=== PATIENT | male | born 1990 | race Caucasian/White ===

== ENCOUNTER 2016-05-02 22:52 | Emergency (ER) | payer BC ==
[2016-05-02 22:59] VITALS: BP 131/66; RESP 16; TEMP 98.6
--- NOTE | 2016-05-02 23:35 | ED ---
Wound/Laceration HPI - General Chief Complaint: Wound/Laceration Stated Complaint: Eye Injury Source: patient Mode of arrival: ambulatory Limitations: no limitations - History of Present Illness Initial Comments: Patient is a 25-year-old male who presents for evaluation after sustaining a laceration to the right eyebrow while playing hockey this evening. Past medical history as below. Injury occurred 1 hour prior to arrival. He has a 1.5 cm laceration within the right eyebrow. Bleeding is controlled. He stated that he is wearing a helmet without EKG on it. Opponent was skating towards him at full speed and when the opponent lifted his head the right eye got hit by the cage of the opponent's helmet. There is no loss of consciousness. No blurry vision or double vision. No pain to the eyes. His last tetanus shot was 4 years ago. He denies fever, chills, URI symptoms, shortness of breath, cough, chest pain, nausea, vomiting, diarrhea, pain or burning with urination. - Related Data Allergies Allergy/AdvReac Type Severity Reaction Status Date / Time No Known Allergies Allergy Verified 05/02/16 22:59 Review of Systems ROS Statement: Those systems with pertinent positive or pertinent negative responses have been documented in the HPI. ROS Other: All systems not noted in ROS Statement are negative. Past Medical History Past Medical History: No Reported History History of Any Multi-Drug Resistant Organisms: MRSA Date of last positivie culture/infection: 2007 MDRO Source:: right knee Past Surgical History: Appendectomy, Orthopedic Surgery Additional Past Surgical History / Comment(s): jaw, nasal surgery Past Anesthesia/Blood Transfusion Reactions: No Reported Reaction Past Psychological History: No Psychological Hx Reported Smoking Status: Never smoker Past Alcohol Use History: Occasional Past Drug Use History: None Reported General Exam Limitations: no limitations General appearance: alert, in no apparent distress, other (Resting comfortably in stretcher) Head exam: Present: normocephalic, normal inspection, other (Minimal soft tissue swelling above the right orbit) Eye exam: Present: normal appearance, PERRL, EOMI, other (Extraocular muscles intact b/l). Absent: scleral icterus, conjunctival injection, periorbital swelling ENT exam: Present: normal exam, mucous membranes moist Neck exam: Present: normal inspection. Absent: tenderness, meningismus, lymphadenopathy Respiratory exam: Present: normal lung sounds bilaterally. Absent: respiratory distress, wheezes, rales, rhonchi, stridor Cardiovascular Exam: Present: regular rate, normal rhythm, normal heart sounds. Absent: systolic murmur, diastolic murmur, rubs, gallop, clicks GI/Abdominal exam: Present: soft, normal bowel sounds. Absent: distended, tenderness, guarding, rebound, rigid Extremities exam: Present: normal inspection, full ROM, normal capillary refill. Absent: tenderness, pedal edema, joint swelling, calf tenderness Back exam: Present: normal inspection Neurological exam: Present: alert, oriented X3, CN II-XII intact Psychiatric exam: Present: normal affect, normal mood Skin exam: Present: warm, dry, intact, normal color, other (1.5 cm laceration within the right eyebrow.). Absent: rash Course Vital Signs 05/02/16 22:53 Temperature 98.6 F Pulse Rate 107 H Respiratory 16 Rate Blood Pressure 131/66 O2 Sat by Pulse 97 Oximetry Procedures - Laceration Laceration #1 Consent Obtained: verbal consent Time Out Performed: Yes Indication: laceration Site: face Size (cm): 1 (1.5 cm laceration) Description: linear Depth: simple, single layer Anesthesia Technique: local infiltration Pre-repair: wound explored, irrigated extensively, deep structures intact Type of Sutures: nylon Size of Sutures: 6-0 Number of Sutures: 4 Technique: simple, interrupted Patient Tolerated Procedure: well, no complications Additional Comments: Patient sustained a 1.5 cm laceration to the right eyebrow. Thoroughly irrigated with 1 L of fluid. Underlying structures intact. No neurovascular damage. Placed 4 6-0 nylon sutures with approximation of the wound edges. Placed with bacitracin and covered. Medical Decision Making - Medical Decision Making 1134: Patient presents for evaluation after sustaining a 1.5 similar laceration to the right eyebrow. He is a mild headache right now similar to previous headaches. No visual changes. Vision intact. Extraocular muscles intact. Received verbal consent to repair his laceration. Believe it would be better approximated with sutures versus glue as it is within the eyebrow. He had a tetanus shot 4 years ago. Thoroughly irrigated with 1 L of fluid and repaired with 4, 6-0 nylon sutures with good approximation. Bleeding controlled. Discussed signs and symptoms of infection and when to return. We will remove sutures at primary care physician's office or our facility in 5-7 days. Voiced understanding. Will remove bandage and 24 hours. Warm soapy water to rinse over it and no scrubbing of the wound. Comfortable with discharge home and will follow-up. Disposition Clinical Impression: Laceration Disposition: HOME SELF-CARE Condition: Good Instructions: Care For Your Stitches (ED), Facial Laceration (ED) Referrals: Roosevelt Abbott MD [Primary Care Provider] - 1-2 days
[2016-05-02 23:42] VITALS: PULSE 88
== END 2016-05-02 23:41 | disposition home or self-care (01) ==
LOC: EC 22:52
DX: S01.111A Laceration without foreign body of right eyelid and periocular area, initial encounter (principal); W21.89XA Striking against or struck by other sports equipment, initial encounter; Y93.22 Activity, ice hockey; Z86.14 Personal history of Methicillin resistant Staphylococcus aureus infection
CPT/HCPCS: 12011; 99282

== ENCOUNTER 2017-06-06 07:30 | Emergency (ER) | payer BC ==
[2017-06-06] MEDS ORDERED: ACETAMINOPHEN TAB 500 MG TAB PO STA (07:59)
[2017-06-06] MEDS ORDERED: diphenhydrAMINE 50 MG/ML 1 ML VIAL IVP STA (07:59)
[2017-06-06] MEDS ORDERED: SODIUM CHLORIDE 0.9% 1,000 ML IV STA (07:59)
[2017-06-06] MEDS ORDERED: KETOROLAC 30 MG/ML 1 ML VIAL IVP STA (07:59)
[2017-06-06] MEDS ORDERED: METOCLOPRAMIDE 5 MG/ML 2 ML VIAL IVP STA (07:59)
[2017-06-06] MEDS ORDERED: IPRATROPIUM-ALBUTEROL 3 ML NEB INHALATION STA ×2 (08:02→09:39)
--- NOTE | 2017-06-06 08:10 | ED ---
General Adult HPI - General Chief complaint: Upper Respiratory Infection Stated complaint: SOB Time Seen by Provider: 06/06/17 07:46 Source: patient, family, RN notes reviewed Mode of arrival: ambulatory Limitations: no limitations - History of Present Illness Initial comments: Patient 26-year-old male with no significant past medical history presents into the emergency room today with a chief complaint of cough congestion and body aches over the last 4 days. Patient states that symptoms started 4 days ago with cough. Doesn't sputum production. Patient states she's had body aches chills. States he went to the clinic was tested for influenza was negative. States started on Tamiflu. Patient states was not feeling well yesterday with increased coughing went to urgent care had a chest x-ray was diagnosed with pneumonia started on antibiotics also a double ear infection. Patient has been taking antibiotics since yesterday. States waking up today. He was having a panic attack felt more short of breath. Patient also admits to headache states is located in the front. States feeling nauseated with sensitivity to light. Patient denies any other complaints or symptoms at this time. Patient denies any recent chest pain, back pain, abdominal pain, nausea or vomiting, numbness or tingling, dysuria or hematuria, constipation or diarrhea, visual changes, or any other complaints. - Related Data Home Medications Medication Instructions Recorded Confirmed Albuterol Inhaler [Ventolin Hfa 1 - 2 puff INHALATION RT-QID PRN 06/06/17 Inhaler] Amoxic-Pot Clav 875-125Mg 1 tab PO BID 06/06/17 06/06/17 [Augmentin 875-125] Allergies Allergy/AdvReac Type Severity Reaction Status Date / Time No Known Allergies Allergy Verified 06/06/17 09:32 Review of Systems ROS Statement: Those systems with pertinent positive or pertinent negative responses have been documented in the HPI. ROS Other: All systems not noted in ROS Statement are negative. Past Medical History Past Medical History: No Reported History History of Any Multi-Drug Resistant Organisms: MRSA Date of last positivie culture/infection: 2007 MDRO Source:: right knee Past Surgical History: Appendectomy, Orthopedic Surgery Additional Past Surgical History / Comment(s): jaw, nasal surgery Past Anesthesia/Blood Transfusion Reactions: No Reported Reaction Past Psychological History: No Psychological Hx Reported Smoking Status: Never smoker Past Alcohol Use History: Occasional Past Drug Use History: None Reported General Exam - General Exam Comments Initial Comments: General: The patient is awake and alert, in no distress, and does not appear acutely ill. Eye: Pupils are equal, round and reactive to light, extra-ocular movements are intact. No nystagmus. There is normal conjunctiva bilaterally. No signs of icterus. Ears, nose, mouth and throat: There are moist mucous membranes and no oral lesions. Neck: The neck is supple, there is no tenderness or JVD. No meningismal signs. Negative Kernig's and Brudzinski's. Cardiovascular: There is a regular rate and rhythm. No murmur, rub or gallop is appreciated. Respiratory: Bilateral expiratory wheezes, rhonchi. respirations are non- labored, breath sounds are equal. No stridor, rales. Musculoskeletal: Normal ROM, no tenderness. Strength 5/5. Sensation intact. Pulses equal bilaterally 2+. Neurological: A&O x 3. CN II-XII intact, There are no obvious motor or sensory deficits. Coordination appears grossly intact. Speech is normal. Skin: Skin is warm and dry and no rashes or lesions are noted. Psychiatric: Cooperative, appropriate mood & affect, normal judgment. Limitations: no limitations Course Vital Signs 06/06/17 06/06/17 06/06/17 07:38 07:59 08:55 Temperature 101.2 F H Pulse Rate 93 96 Respiratory 20 20 Rate Blood Pressure 134/73 O2 Sat by Pulse 96 Oximetry 06/06/17 06/06/17 09:03 09:47 Temperature Pulse Rate 92 112 H Respiratory Rate Blood Pressure O2 Sat by Pulse Oximetry Medical Decision Making - Medical Decision Making Patient did have a temperature at triage here. Was recently diagnosed with pneumonia. Started on Tamiflu and antibiotics yesterday. Patient's chest x- ray reviewed does show a left lower lobe pneumonia. Patient's labs been reviewed and negative influenza. Negative strep, negative heterophile. Patient 's feeling better after medications given here in emergency room. He states his headache is gone. Feel better after Reglan, Benadryl, Toradol and fluids. Patient does admit to some improvement after breathing treatment. Options were discussed with patient about admission. He has declined. Patient will be continued on antibiotics of Augmentin that he was previously prescribed. Given dose of Rocephin, steroids here in the emergency room. Patient's repeat pulse ox 96% on room air. Patient feeling well at this time states he would like to go home and has declined admission. Patient advised to return if symptoms increase worsen. Follow-up family physician over the next 2 days. - Lab Data Result diagrams: 06/06/17 08:21 04 08:21 Lab Results 06/06/17 06/06/17 06/06/17 Range/Units 08:21 08:21 08:21 WBC 3.9 (3.8-10.6) k/uL RBC 4.94 (4.30-5.90) m/uL Hgb 14.1 (13.0-17.5) gm/dL Hct 40.9 (39.0-53.0) % MCV 82.8 (80.0-100.0) fL MCH 28.5 (25.0-35.0) pg MCHC 34.4 (31.0-37.0) g/dL RDW 12.2 (11.5-15.5) % Plt Count 172 (150-450) k/uL Neutrophils % 74 % Lymphocytes % 15 % Monocytes % 6 % Eosinophils % 3 % Basophils % 0 % Neutrophils # 2.9 (1.3-7.7) k/uL Lymphocytes # 0.6 L (1.0-4.8) k/uL Monocytes # 0.2 (0-1.0) k/uL Eosinophils # 0.1 (0-0.7) k/uL Basophils # 0.0 (0-0.2) k/uL Sodium 139 (137-145) mmol/L Potassium 4.9 (3.5-5.1) mmol/L Chloride 99 (98-107) mmol/L Carbon Dioxide 26 (22-30) mmol/L Anion Gap 14 mmol/L BUN 19 (9-20) mg/dL Creatinine 0.94 (0.66-1.25) mg/dL Est GFR (CKD-EPI)AfAm >90 (>60 ml/min/1.73 sqM) Est GFR (CKD-EPI)NonAf >90 (>60 ml/min/1.73 sqM) Glucose 119 H (74-99) mg/dL Calcium 9.4 (8.4-10.2) mg/dL Heterophile Antibody Negative (Negative) Influenza Type A RNA (Not Detectd) Influenza Type B (PCR) (Not Detectd) Group A Strep Rapid (Negative) 06/06/17 06/06/17 Range/Units 08:21 08:21 WBC (3.8-10.6) k/uL RBC (4.30-5.90) m/uL Hgb (13.0-17.5) gm/dL Hct (39.0-53.0) % MCV (80.0-100.0) fL MCH (25.0-35.0) pg MCHC (31.0-37.0) g/dL RDW (11.5-15.5) % Plt Count (150-450) k/uL Neutrophils % % Lymphocytes % % Monocytes % % Eosinophils % % Basophils % % Neutrophils # (1.3-7.7) k/uL Lymphocytes # (1.0-4.8) k/uL Monocytes # (0-1.0) k/uL Eosinophils # (0-0.7) k/uL Basophils # (0-0.2) k/uL Sodium (137-145) mmol/L Potassium (3.5-5.1) mmol/L Chloride (98-107) mmol/L Carbon Dioxide (22-30) mmol/L Anion Gap mmol/L BUN (9-20) mg/dL Creatinine (0.66-1.25) mg/dL Est GFR (CKD-EPI)AfAm (>60 ml/min/1.73 sqM) Est GFR (CKD-EPI)NonAf (>60 ml/min/1.73 sqM) Glucose (74-99) mg/dL Calcium (8.4-10.2) mg/dL Heterophile Antibody (Negative) Influenza Type A RNA Not Detected (Not Detectd) Influenza Type B (PCR) Not Detected (Not Detectd) Group A Strep Rapid Negative (Negative) Disposition Clinical Impression: Community acquired pneumonia Disposition: HOME SELF-CARE Condition: Good Instructions: Community Acquired Pneumonia (ED) Additional Instructions: Please use medication as discussed. Please follow-up with family doctor in the next 2 days of symptoms have not improved. Please return to emergency room if the symptoms increase or worsen or for any other concerns. Referrals: Roosevelt Abbott MD [Primary Care Provider] - 1-2 days Time of Disposition: 09:55
[2017-06-06 08:35] LABS: Basophils % (A) 0 %; Eosinophils # (A) 0.1 k/uL (0-0.7); Eosinophils % (A) 3 %; HCT 40.9 % (39.0-53.0); HGB 14.1 gm/dL (13.0-17.5); Lymphocytes # (A) 0.6 k/uL (1.0-4.8); Lymphocytes % (A) 15 %; MCH 28.5 pg (25.0-35.0); MCHC 34.4 g/dL (31.0-37.0); MCV 82.8 fL (80.0-100.0); Mean Platelet Volume 7.4; Monocytes # (A) 0.2 k/uL (0-1.0); Monocytes % (A) 6 %; Neutrophils # (A) 2.9 k/uL (1.3-7.7); Neutrophils % (A) 74 %; Platelet Count 172 k/uL (150-450); RBC 4.94 m/uL (4.30-5.90); RDW 12.2 % (11.5-15.5); WBC 3.9 k/uL (3.8-10.6)
[2017-06-06 08:44] LABS: Anion Gap 14 mmol/L; Blood Urea Nitrogen 19 mg/dL (9-20); Calcium 9.4 mg/dL (8.4-10.2); Carbon Dioxide 26 mmol/L (22-30); Chloride 99 mmol/L (98-107); Glucose 119 mg/dL (74-99); Potassium 4.9 mmol/L (3.5-5.1); Sodium 139 mmol/L (137-145)
--- NOTE | 2017-06-06 08:44 | XR ---
EXAMINATION TYPE: XR chest 2V DATE OF EXAM: 06/06/2017 COMPARISON: None HISTORY: 26-year-old male with cough and flulike symptoms TECHNIQUE: PA and lateral views FINDINGS: The cardiomediastinal silhouette, aorta, and pulmonary vasculature are within normal limits. There is patchy infiltrate at the left base. No pleural effusion. IMPRESSION: Left basilar pneumonia.
[2017-06-06] MEDS ORDERED: cefTRIAXone IN SWFI 1,000 MG/10 ML SYRINGE IVP STA (09:28)
[2017-06-06] MEDS ORDERED: methylPREDNISolone SOD SUCCI 125 MG/2 ML VIAL IV STA (09:28)
[2017-06-06 10:25] VITALS: BP 139/60; PULSE 90; RESP 18; TEMP 98.2
== END 2017-06-06 10:25 | disposition home or self-care (01) ==
LOC: EC 07:30
DX: J18.1 Lobar pneumonia, unspecified organism (principal); H66.93 Otitis media, unspecified, bilateral; F41.0 Panic disorder [episodic paroxysmal anxiety]; Z86.14 Personal history of Methicillin resistant Staphylococcus aureus infection
CPT/HCPCS: 36415; 94640 ×2; 80048; 85025; 86308; 87081; 87430; 87502; 71046; 99284; 96374; 96375 ×4; 96361; J1200; J2765; J2930; J0696; J1885

== ENCOUNTER 2017-08-04 14:28 | Emergency (ER) | payer BC, OTHER ==
[2017-08-04 14:36] VITALS: RESP 16
--- NOTE | 2017-08-04 15:47 | XR ---
EXAMINATION TYPE: XR hand complete LT DATE OF EXAM: 08/04/2017 CLINICAL HISTORY: Laceration between the first and second metacarpal. TECHNIQUE: Frontal, lateral and oblique images of the left hand are obtained. COMPARISON: None. FINDINGS: There is no acute fracture/dislocation evident in the left hand. The joint spaces in the l eft hand appear within normal limits. The overlying soft tissue appears unremarkable. No radiopaque foreign body. No subcutaneous emphysema. IMPRESSION: There is no acute fracture or dislocation in the left hand. No radiopaque foreign body.
[2017-08-04] MEDS ORDERED: IBUPROFEN 600 MG TAB PO STA (16:09)
--- NOTE | 2017-08-04 16:25 | ED ---
General Adult HPI - General Chief complaint: Wound/Laceration Stated complaint: hand lac-[facility] Time Seen by Provider: 08/04/17 15:02 Source: patient, RN notes reviewed Mode of arrival: ambulatory Limitations: no limitations - History of Present Illness Initial comments: 27-year-old male presents to the emergency department for chief complaint of laceration to the webspace between the first and second digit of the left hand x 1 hour. Patient states he was at work when he cut himself with an [employer] knife. Patient states his last tetanus shot was less than one year ago. Patient states he has pain in his left thumb but he can move it without difficulty. Patient did not sustain any other injuries. Patient has no other complaints at this time including shortness of breath, chest pain, abdominal pain, nausea or vomiting, headache, or visual changes. - Related Data Home Medications Medication Instructions Recorded Confirmed Albuterol Inhaler [Ventolin Hfa 1 - 2 puff INHALATION RT-QID PRN 06/06/17 Inhaler] Amoxic-Pot Clav 875-125Mg 1 tab PO BID 06/06/17 06/06/17 [Augmentin 875-125] Previous Rx's Medication Instructions Recorded Ibuprofen [Motrin] 600 mg PO Q8HR PRN #20 tab 08/04/17 Allergies Allergy/AdvReac Type Severity Reaction Status Date / Time No Known Allergies Allergy Verified 08/04/17 14:36 Review of Systems ROS Statement: Those systems with pertinent positive or pertinent negative responses have been documented in the HPI. ROS Other: All systems not noted in ROS Statement are negative. Past Medical History Past Medical History: No Reported History History of Any Multi-Drug Resistant Organisms: MRSA Date of last positivie culture/infection: 2007 MDRO Source:: right knee Past Surgical History: Appendectomy, Orthopedic Surgery Additional Past Surgical History / Comment(s): jaw, nasal surgery Past Anesthesia/Blood Transfusion Reactions: No Reported Reaction Past Psychological History: No Psychological Hx Reported Smoking Status: Never smoker Past Alcohol Use History: Occasional Past Drug Use History: None Reported General Exam Limitations: no limitations General appearance: alert, in no apparent distress Head exam: Present: atraumatic, normocephalic, normal inspection Eye exam: Present: normal appearance, PERRL, EOMI. Absent: scleral icterus, conjunctival injection ENT exam: Present: normal exam, normal oropharynx, normal external ear exam Neck exam: Present: normal inspection, full ROM. Absent: tenderness, meningismus, lymphadenopathy Respiratory exam: Present: normal lung sounds bilaterally. Absent: respiratory distress, wheezes, rales, rhonchi, stridor Cardiovascular Exam: Present: regular rate, normal rhythm, normal heart sounds. Absent: systolic murmur, diastolic murmur, rubs, gallop, clicks Extremities exam: Present: full ROM (Full range of motion of the left thumb including flexion extension adduction and abduction.), tenderness (Tenderness to the laceration of the left thumb no tenderness elsewhere in the left hand including the scaphoid.), normal capillary refill (Refill less than 2 seconds and radial pulse 2+.), other (1.5 cm laceration to the dorsal webspace between the first and second digit of the left hand.). Absent: joint swelling (No swelling or ecchymosis in the left thumb or rest of the left hand. No signs of infection such as cellulitic changes or spreading redness.) Course Vital Signs 08/04/17 08/04/17 14:32 16:30 Temperature 97.5 F L 97.4 F L Pulse Rate 81 76 Respiratory 16 16 Rate Blood Pressure 141/68 134/70 O2 Sat by Pulse 98 98 Oximetry Procedures - Procedures Initial comment: Body area: L hand, dorsal webspace between 1st and 2nd digit Laceration length: 1.5 cm Foreign bodies: no foreign bodies Tendon involvement: none Nerve involvement: none Vascular damage: no Anesthesia: local infiltration Local anesthetic: 3 mL 1% lidocaine Preparation: Patient was prepped and draped in the usual sterile fashion. Irrigation solution: sterile water Irrigation method: 1 L sterile water jet lavage Skin closure:5-0 Ethilon using sterile technique Number of sutures: 3 Technique: interupted Dressing: antibiotic ointment/ gauze Patient tolerance: Patient tolerated the procedure well with no immediate complications. Medical Decision Making - Medical Decision Making 27-year-old male presents to the emergency department for chief complaint of laceration to the left hand one hour ago. Patient cut it with an X-Acto knife. Patient's tetanus is up-to-date. On exam patient has a 1.5 cm to the dorsal lips the 21st and second digit of the left hand. Full range of motion of the left thumb and neurovascular intact. X-ray demonstrates no bony involvement or foreign bodies. Patient's wound was cleaned thoroughly. It was soaked in water and iodine and irrigated with a liter of sterile water. Iodine was then used to clean the area before suturing 3 stitches. He will monitor for any signs of infection and return if these occur. He will return in 7-10 days to have sutures removed. He will follow up with primary care provider in one to 2 days. Disposition Clinical Impression: Laceration Disposition: HOME SELF-CARE Condition: Good Instructions: Care For Your Stitches (ED), Laceration (ED) Additional Instructions: Please take Motrin or Tylenol for pain. Please rest ice and elevate the hand. Monitor for any signs of infection such as spreading redness, streaking redness , drainage, or fever. If these or any other worsening symptoms occur return to the emergency department. Otherwise return to the emergency department in 7-10 days to have sutures removed. Follow up with primary care in 1-2 days. Prescriptions: Ibuprofen [Motrin] 600 mg PO Q8HR PRN #20 tab PRN Reason: Pain Is patient prescribed a controlled substance at d/c from ED?: No Referrals: Roosevelt Abbott MD [Primary Care Provider] - 1-2 days Time of Disposition: 16:23
[2017-08-04 16:40] VITALS: BP 134/70; PULSE 76; TEMP 97.4
== END 2017-08-04 16:30 | disposition home or self-care (01) ==
LOC: EC 14:28
DX: S61.412A Laceration without foreign body of left hand, initial encounter (principal); Z86.14 Personal history of Methicillin resistant Staphylococcus aureus infection; Z98.890 Other specified postprocedural states; W26.0XXA Contact with knife, initial encounter; Y92.69 Other specified industrial and construction area as the place of occurrence of the external cause; Y99.0 Civilian activity done for income or pay
CPT/HCPCS: 12001; 99283

== ENCOUNTER 2021-10-16 11:00 | Emergency (ER) | payer BC, OTHER ==
[2021-10-16 11:11] VITALS: BP 131/67; PULSE 105; RESP 20; TEMP 98.4
[2021-10-16] MEDS ORDERED: ONDANSETRON 4 MG/2 ML VIAL IVP STA (11:26)
[2021-10-16] MEDS ORDERED: HYDROmorphone 0.5 MG/0.5 ML SYRINGE IVP STA (11:26)
[2021-10-16] MEDS ORDERED: SODIUM CHLORIDE 0.9% 500 ML 500 ML IV STA (11:26)
[2021-10-16] MEDS ORDERED: KETOROLAC 15 MG/ML 1 ML VIAL IVP STA (11:26)
[2021-10-16] MEDS ORDERED: SODIUM CHLORIDE 0.9% 1,000 ML IV STA (11:26)
--- NOTE | 2021-10-16 12:30 | ED ---
General Adult HPI - General Chief complaint: Abdominal Pain Stated complaint: testicle pain Time Seen by Provider: 10/16/21 11:12 Source: patient, RN notes reviewed Mode of arrival: ambulatory Limitations: no limitations - History of Present Illness Initial comments: 31-year-old male presents emergency Department with chief complaint of left testicular pain. Started on some discomfort yesterday but worsened overnight. Patient states feelings rating up into his abdomen and back. Patient did quite well not unilateral pain and midback he does mild left-sided scrotal pain denies any trauma he did have some mild dysuria. Patient denies any penile drainage denies any sores or lesion. Patient denies any prior scrotal surgery does manage her prior appendectomy patient claims of diffuse body aches. Denies any sick contacts no other associated complaints - Related Data Home Medications Medication Instructions Recorded Confirmed Dextroamphetamine/Amphetamine 30 mg PO DAILY 10/16/21 10/16/21 [Adderall Xr 30 mg Capsule] Dextroamphetamine/Amphetamine 15 mg PO DAILY 10/16/21 10/16/21 [Adderall] buPROPion XL [Wellbutrin XL] 150 mg PO DAILY 10/16/21 10/16/21 Previous Rx's Medication Instructions Recorded Doxycycline [Vibramycin] 100 mg PO BID #20 capsule 10/16/21 Ibuprofen [Motrin] 600 mg PO Q8HR PRN #20 tab 10/16/21 Allergies Allergy/AdvReac Type Severity Reaction Status Date / Time No Known Allergies Allergy Verified 10/16/21 12:00 Review of Systems ROS Statement: Those systems with pertinent positive or pertinent negative responses have been documented in the HPI. ROS Other: All systems not noted in ROS Statement are negative. Past Medical History Past Medical History: No Reported History History of Any Multi-Drug Resistant Organisms: MRSA Date of last positivie culture/infection: 2007 MDRO Source:: right knee Past Surgical History: Appendectomy, Orthopedic Surgery Additional Past Surgical History / Comment(s): jaw, nasal surgery Past Anesthesia/Blood Transfusion Reactions: No Reported Reaction Past Psychological History: No Psychological Hx Reported Smoking Status: Never smoker Past Alcohol Use History: Occasional Past Drug Use History: None Reported General Exam Limitations: no limitations General appearance: alert, in no apparent distress Head exam: Present: atraumatic, normocephalic, normal inspection Eye exam: Present: normal appearance, PERRL, EOMI. Absent: scleral icterus, conjunctival injection, periorbital swelling ENT exam: Present: normal exam, normal oropharynx, mucous membranes moist Neck exam: Present: normal inspection, full ROM. Absent: tenderness, men ingismus, lymphadenopathy Respiratory exam: Present: normal lung sounds bilaterally. Absent: respiratory distress, wheezes, rales, rhonchi, stridor Cardiovascular Exam: Present: normal rhythm, tachycardia, normal heart sounds. Absent: systolic murmur, diastolic murmur, rubs, gallop, clicks GI/Abdominal exam: Present: soft, normal bowel sounds. Absent: distended, tenderness, guarding, rebound, rigid exam: Present: testicular tenderness, scrotal swelling, circumcision. Absent: urethral discharge, vertical testicular lie Back exam: Absent: CVA tenderness (R), CVA tenderness (L) Course Vital Signs 10/16/21 11:09 Temperature 98.4 F Pulse Rate 105 H Respiratory 20 Rate Blood Pressure 131/67 O2 Sat by Pulse 100 Oximetry Medical Decision Making - Medical Decision Making 31-year-old male presents from it for left is the pain. Patient has evidence of varicocele, hydrocele most likely underlying epididymitis. Patient was given Rocephin and doxycycline urine gonorrhea and chlamydia were sent. Patient discharged with anti-inflammatories urology follow-up return parameters discussed. - Lab Data Result diagrams: 10/16/21 12:23 10/16/21 12:23 Lab Results 10/16/21 10/16/21 10/16/21 Range/Units 12:23 12:23 12:23 WBC 6.0 (3.8-10.6) k/uL RBC 4.95 (4.30-5.90) m/uL Hgb 14.2 (13.0-17.5) gm/dL Hct 43.2 (39.0-53.0) % MCV 87.4 (80.0-100.0) fL MCH 28.7 (25.0-35.0) pg MCHC 32.9 (31.0-37.0) g/dL RDW 12.6 (11.5-15.5) % Plt Count 209 (150-450) k/uL MPV 7.8 Neutrophils % 77 % Lymphocytes % 9 % Monocytes % 5 % Eosinophils % 6 % Basophils % 1 % Neutrophils # 4.6 (1.3-7.7) k/uL Lymphocytes # 0.6 L (1.0-4.8) k/uL Monocytes # 0.3 (0-1.0) k/uL Eosinophils # 0.4 (0-0.7) k/uL Basophils # 0.0 (0-0.2) k/uL Sodium 137 (137-145) mmol/L Potassium 4.4 (3.5-5.1) mmol/L Chloride 98 (98-107) mmol/L Carbon Dioxide 25 (22-30) mmol/L Anion Gap 14 mmol/L BUN 18 (9-20) mg/dL Creatinine 1.03 (0.66-1.25) mg/dL Est GFR (CKD-EPI)AfAm >90 (>60 ml/min/1.73 sqM) Est GFR (CKD-EPI)NonAf >90 (>60 ml/min/1.73 sqM) Glucose 106 H (74-99) mg/dL Plasma Lactic Acid Femi 1.1 (0.7-2.0) mmol/L Calcium 9.5 (8.4-10.2) mg/dL Total Bilirubin 1.6 H (0.2-1.3) mg/dL AST 28 (17-59) U/L ALT 50 H (4-49) U/L Alkaline Phosphatase 180 H (38-126) U/L Total Protein 7.7 (6.3-8.2) g/dL Albumin 4.9 (3.5-5.0) g/dL Lipase 20 L (23-300) U/L Urine Color Urine Appearance (Clear) Urine pH (5.0-8.0) Ur Specific Diagonal (1.001-1.035) Urine Protein (Negative) Urine Glucose (UA) (Negative) Urine Ketones (Negative) Urine Blood (Negative) Urine Nitrite (Negative) Urine Bilirubin (Negative) Urine Urobilinogen (<2.0) mg/dL Ur Leukocyte Esterase (Negative) 10/16/21 Range/Units 14:11 WBC (3.8-10.6) k/uL RBC (4.30-5.90) m/uL Hgb (13.0-17.5) gm/dL Hct (39.0-53.0) % MCV (80.0-100.0) fL MCH (25.0-35.0) pg MCHC (31.0-37.0) g/dL RDW (11.5-15.5) % Plt Count (150-450) k/uL MPV Neutrophils % % Lymphocytes % % Monocytes % % Eosinophils % % Basophils % % Neutrophils # (1.3-7.7) k/uL Lymphocytes # (1.0-4.8) k/uL Monocytes # (0-1.0) k/uL Eosinophils # (0-0.7) k/uL Basophils # (0-0.2) k/uL Sodium (137-145) mmol/L Potassium (3.5-5.1) mmol/L Chloride (98-107) mmol/L Carbon Dioxide (22-30) mmol/L Anion Gap mmol/L BUN (9-20) mg/dL Creatinine (0.66-1.25) mg/dL Est GFR (CKD-EPI)AfAm (>60 ml/min/1.73 sqM) Est GFR (CKD-EPI)NonAf (>60 ml/min/1.73 sqM) Glucose (74-99) mg/dL Plasma Lactic Acid Femi (0.7-2.0) mmol/L Calcium (8.4-10.2) mg/dL Total Bilirubin (0.2-1.3) mg/dL AST (17-59) U/L ALT (4-49) U/L Alkaline Phosphatase (38-126) U/L Total Protein (6.3-8.2) g/dL Albumin (3.5-5.0) g/dL Lipase (23-300) U/L Urine Color Yellow Urine Appearance Clear (Clear) Urine pH 8.0 (5.0-8.0) Ur Specific Diagonal 1.027 (1.001-1.035) Urine Protein Trace H (Negative) Urine Glucose (UA) Negative (Negative) Urine Ketones Negative (Negative) Urine Blood Negative (Negative) Urine Nitrite Negative (Negative) Urine Bilirubin Negative (Negative) Urine Urobilinogen 3.0 (<2.0) mg/dL Ur Leukocyte Esterase Negative (Negative) Disposition Clinical Impression: Epididymitis, Varicocele, Hydrocele Disposition: HOME SELF-CARE Condition: Stable Instructions (If sedation given, give patient instructions): Epididymitis (ED), Testicle Pain (ED) Additional Instructions: Please return to the Emergency Department if symptoms worsen or any other concerns. Prescriptions: Ibuprofen [Motrin] 600 mg PO Q8HR PRN #20 tab PRN Reason: Pain Doxycycline [Vibramycin] 100 mg PO BID #20 capsule Is patient prescribed a controlled substance at d/c from ED?: No Referrals: Roosevelt Abbott MD [Primary Care Provider] - 1-2 days Keyshawn Noonan MD [STAFF PHYSICIAN] - 1-2 days Time of Disposition: 14:41
[2021-10-16 12:35] LABS: Basophils % (A) 1 %; Eosinophils # (A) 0.4 k/uL (0-0.7); Eosinophils % (A) 6 %; HCT 43.2 % (39.0-53.0); HGB 14.2 gm/dL (13.0-17.5); Lymphocytes # (A) 0.6 k/uL (1.0-4.8); Lymphocytes % (A) 9 %; MCH 28.7 pg (25.0-35.0); MCHC 32.9 g/dL (31.0-37.0); MCV 87.4 fL (80.0-100.0); Mean Platelet Volume 7.8; Monocytes # (A) 0.3 k/uL (0-1.0); Monocytes % (A) 5 %; Neutrophils # (A) 4.6 k/uL (1.3-7.7); Neutrophils % (A) 77 %; Platelet Count 209 k/uL (150-450); RBC 4.95 m/uL (4.30-5.90); RDW 12.6 % (11.5-15.5)
[2021-10-16 12:59] LABS: ALT 50 U/L (4-49); AST 28 U/L (17-59); African American GFR (CKD) >90 (>60 ml/min/1.73 sqM); Albumin 4.9 g/dL (3.5-5.0); Alkaline Phosphatase 180 U/L (38-126); Anion Gap 14 mmol/L; Blood Urea Nitrogen 18 mg/dL (9-20); Calcium 9.5 mg/dL (8.4-10.2); Carbon Dioxide 25 mmol/L (22-30); Chloride 98 mmol/L (98-107); Glucose 106 mg/dL (74-99); Lipase 20 U/L (23-300); Non-African American GFR(CKD) >90 (>60 ml/min/1.73 sqM); Potassium 4.4 mmol/L (3.5-5.1); Sodium 137 mmol/L (137-145); Total Bilirubin 1.6 mg/dL (0.2-1.3); Total Protein 7.7 g/dL (6.3-8.2)
--- NOTE | 2021-10-16 13:38 | US ---
EXAMINATION TYPE: US scrotum with doppler. Grayscale and color Doppler Duplex imaging performed of t ulises scrotum. DATE OF EXAM: 10/16/2021 COMPARISON: NONE CLINICAL HISTORY: Left testicular pain, left groin pain. EXAM MEASUREMENTS: TESTICLES: Right Testicle: 4.8 x 2.1 x 3.6 cm Left Testicle: 4.3 x 2.1 x 3.1 cm EPIDIDYMIS HEAD: Right Epididymis: 1.1 x 0.9 cm Left Epididymis: 1.1 x 1.0 cm Doppler performed to assess for testicular vascularity; good bilateral color flow and waveforms are s een. There is no evidence of testicular torsion. Presence of hydroceles: small amount of fluid around both testicles. Presence of varicoceles: tubular structures inferior to left testicle that have increased flow with valsalva. IMPRESSION: 1. Small hydroceles. 2. Small left-sided varicoceles.
[2021-10-16 14:18] LABS: Appearance,Urine Clear (Clear); Bilirubin,Urine Negative (Negative); Blood,Urine Negative (Negative); Color,Urine Yellow; Glucose,Urine (UA) Negative (Negative); Ketones,Urine Negative (Negative); Leukocyte Esterase,Urine Negative (Negative); Nitrite,Urine Negative (Negative); Protein,Urine Trace (Negative); Specific Gravity,Urine 1.027 (1.001-1.035)
[2021-10-16] MEDS ORDERED: cefTRIAXone IN SWFI 1,000 MG/10 ML SYRINGE IVP STA (14:39)
[2021-10-16] MEDS ORDERED: ACET/COD 300 MG/30 MG STARTER PACK 6 TAB BTL PO STA (14:42)
== END 2021-10-16 15:14 | disposition home or self-care (01) ==
LOC: EC 11:00
DX: N45.1 Epididymitis (principal); I86.1 Scrotal varices; N43.3 Hydrocele, unspecified
CPT/HCPCS: 36415; 80053; 83605; 83690; 85025; 81003; 87491; 87591; 93975; 76870; 99284; 96374; 96375; 96361; J2405; J0696; J1885; J1170